=== PATIENT | female | born 1995 | race Two or more races ===

== ENCOUNTER 2024-11-09 15:04 | Emergency (ER) | payer MEDICAID, SELFPAY ==
--- NOTE | 2024-11-09 15:09 | XR_ITS ---
Examination: OB Transvaginal ultrasound of the pelvis, complete Technique: Transvaginal sonographic images pelvis performed using mann scale imaging Exam date and time: November 09, 2024 1543 hours INDICATIONS: Vaginal bleeding lower back pain pelvic pain beginning today. FINDINGS: Uterus 6.7 x 3.7 x 4.5 cm Left uterine fundal mass 8 x 6 x 7 mm Intrauterine gestational sac 0.6 cm corresponds to 5 weeks 2 days gestational age No pole, no cardiac activity Right ovary 5.3 x 3.5 x 4.1 cm, multiple cysts, the largest 3.6 cm, arterial flow to the ovary Left ovary 3.7 x 1.7 x 3.1 cm arterial flow multiple follicles IMPRESSION: Empty intrauterine gestational sac corresponding to 5 weeks 2 days gestational age, no pole, no cardiac activity Recommend short-term follow-up transvaginal pelvic sonography to document viability
[2024-11-09 15:38] VITALS: BP 130/84; PULSE 79; RESP 16; TEMP 37.1; O2SAT 100; BMI 24.7
[2024-11-09 16:47] LABS: Basophils % (Auto) 0 % (0-2.5); Eosinophils # (Auto) 0.2 Thou/mm3 (0.0-0.5); Eosinophils % (Auto) 2 % (0-10); Hematocrit 38.4 % (36.0-46.0); Hemoglobin 13.4 g/dL (12.0-16.0); Immature Granulocytes % (Auto) 1 % (0-0); Immature Granulocytes Auto 0.08 Thou/mm3 (0.00-0.00); Lymphocytes # (Auto) 2.2 Thou/mm3 (1.0-4.8); Lymphocytes % (Auto) 29 % (10-50); Mean Corpuscular HGB Conc 34.9 g/dl (31.0-37.0); Mean Corpuscular Hemoglobin 30.2 pg (25.0-35.0); Mean Corpuscular Volume 87 fL (80-100); Monocytes # (Auto) 0.6 Thou/mm3 (0.0-0.8); Monocytes % (Auto) 7 % (0-12); Neutrophils # (Auto) 4.7 Thou/mm3 (1.8-7.7); Neutrophils % (Auto) 61 % (37-80); Nucleated Red Blood Cell % 0 /100 WBC (0); Platelet Count 226 Thou/mm3 (140-440); RDW Standard Deviation 38.3 fL (36.4-46.3); Red Blood Count 4.44 Miln/mm3 (4.00-5.20); White Blood Count 7.7 Thou/mm3 (3.6-11.0)
[2024-11-09 17:14] LABS: Alanine Aminotransferase 23 U/L (10-49); Albumin, Serum 4.7 gm/dL (3.5-5.0); Albumin/Globulin Ratio 1.8 (1.2-2.2); Alkaline Phosphatase 58 U/L (46-116); Anion Gap 10 (7-16); Aspartate Amino Transferase 21 U/L (0-34); BUN/Creatinine Ratio 18 Ratio (12-20); Beta HCG,Quantitative 65 mIU/mL (<5.0); Bilirubin,Total 0.4 mg/dL (0.3-1.2); Blood Urea Nitrogen 11 mg/dL (9-23); Calcium 9.8 mg/dL (8.3-10.6); Calcium (Corrected) 9.8 mg/dL (8.5-10.1); Chloride 105 mMol/L (98-107); Creatinine (Component) 0.6 mg/dL (0.6-1.3); Estimated Creatinine Clearance 124.1 mL/min (>60); Globulin 2.6 gm/dL (2.3-3.5); Glucose 86 mg/dL (74-106); Osmolality,Calculated 274 (275-295); Potassium 3.8 mMol/L (3.4-5.1); Sodium 138 mMol/L (136-145); Total Protein 7.3 gm/dL (5.7-8.2); eGFR > 60 See Note
--- NOTE | 2024-11-09 17:22 | EDNOTE_ITS ---
ED OB Contraction Preg RMI/HPI General Chief complaint: Vaginal Bleeding Stated complaint: VAGINAL BLEEDING AND BACK PAIN AT 5 WKS Time Seen by Provider: 11/09/24 15:08 Arrival date/time: 11/09/24 15:04 29-year-old female presents to the emergency department today complaints of vaginal spotting reports being approximate 5 weeks Limitations: no limitations Related Data Previous Rx's ?Medication ?Instructions ?Recorded nitrofurantoin macrocrystal 100 mg 100 mg PO BID #14 caps 07/02/18 capsule (Macrodantin) ondansetron 4 mg disintegrating 4 mg PO Q8H #20 tabs 02/27/24 tablet pantoprazole 20 mg tablet,delayed 20 mg PO QDAY #30 tabs 02/27/24 release (Protonix) Allergies Allergy/AdvReac Type Severity Reaction Status Date / Time almond Allergy Mild Rash Verified 11/09/24 15:06 Review of Systems Review of Systems Systems Reviewed: All systems reviewed, normal except as documented Constitutional Constitutional: Reports system reviewed and no additional complaints, except as documented, Denies fever(s) and Denies headache(s) Eyes Eyes: Reports system reviewed and no additional complaints, except as documented and Denies blurry vision ENT Ears, Nose, Mouth, and Throat: Reports system reviewed and no additional complaints, except as documented, Denies headache(s), Denies nasal congestion and Denies nasal discharge Cardiovascular Cardiovascular: Reports system reviewed and no additional complaints, except as documented, Denies chest pain and Denies dyspnea Respiratory Respiratory: Reports system reviewed and no additional complaints, except as documented, Denies chest congestion, Denies cough and Denies dyspnea Gastrointestinal Gastrointestinal: Reports system reviewed and no additional complaints, except as documented and Denies abdominal pain Genitourinary Genitourinary: Reports system reviewed and no additional complaints, except as documented and Reports abnormal vaginal bleeding Integumentary/Breasts Skin/Breast: Reports system reviewed and no additional complaints, except as documented and Denies rash Neurologic Neurologic: Reports system reviewed and no additional complaints, except as documented, Reports as per HPI and Denies headache(s) Past Medical History Past Medical History NEUROLOGIC: Negative Neurological Disorders CARDIAC: Negative Cardiac Disorders ED Exam General Limitations: Present no limitations General appearance: Present alert and in no apparent distress Head Head exam: Present atraumatic, normocephalic and normal inspection Eye Eye exam: Present normal appearance, PERRL and EOMI; Absent conjunctival injection ENT ENT exam: Present normal exam, normal oropharynx and mucous membranes moist Neck Neck exam: Present normal inspection, full ROM and trachea midline Chest Chest inspection: Present normal inspection and symmetric chest wall rise Respiratory Respiratory exam: Present normal lung sounds bilaterally; Absent respiratory distress Cardiovascular Cardiovascular exam: Present regular rate, normal rhythm and normal heart sounds Abdominal Exam Abdominal exam: Present soft and normal bowel sounds; Absent distention, tenderness, guarding, rebound or rigidity Extremities Exam Extremities exam: Present normal inspection and full ROM Back Exam Back exam: Present normal inspection and full ROM Neurological Exam Neurological exam: Present alert, oriented X3 and CN II-XII intact Psychiatric Psychiatric exam: Present normal affect and normal mood Skin Skin exam: Present warm, dry, intact and normal color Course Quality Measures none Orders Category Date Time Status US OB transvaginal Stat Exams 11/09/24 15:09 Completed ABO/RH Type Stat Lab 11/09/24 16:18 Received Beta HCG,Quantitative Stat Lab 11/09/24 16:18 Completed CBC Stat Lab 11/09/24 16:18 Completed Comprehensive Metabolic Panel Stat Lab 11/09/24 16:18 Completed Vital Signs Vital signs: Vital Signs Temperature 98.8 F 11/09/24 15:38 Pulse Rate 79 11/09/24 15:38 Respiratory Rate 16 11/09/24 15:38 Blood Pressure 130/84 11/09/24 15:38 Pulse Oximetry (%) 100 11/09/24 15:38 Oxygen Delivery Method Room Air 11/09/24 15:38 O2 saturation 100% room air with normal limits Vaginal Bleeding MDM Narrative MDM Narrative: 29-year-old female presents to the emergency department today complaints of vaginal spotting reports being approximate 5 weeks Patient reports this is her first and went underwent in vitro fertilization Lab work as well as ultrasound obtained hCG is only 65 ultrasound shows no heartbeat at this time I suspect patient is having a miscarriage Patient struck to follow-up with [employer] as soon as possible for any worsening symptoms return immediately Patient data External records reviewed:: [facility] previous records Clinical information provided by:: patient Social determinants that could affect healthcare access:: none Patient has the following chronic illnesses:: None How is presenting disease/condition affected by chronic disease/condition?: no chronic disease Evaluation data The following diagnostics were reviewed and interpreted by me:: lab results and radiology exam(s) Lab and/or radiology exams considered but not ordered:: Labs and radiology obtained Interpretation Summary: Reviewed by me Medications / Prescriptions Medications or Prescriptions considered but not ordered:: Given Medication administrations:: Given Consultations Consultation(s) initiated? (list below): No Diagnosis Vaginal Bleeding Differential Diagnosis: missed and threatened Most likely diagnosis given after review of the tests above:: Threatened Admission Indicated Admission indicated?: not indicated Admission Request Was there a request for admission?: No Disposition Plan Disposition Plan: Discharge Discharge Attestation Discharge Attestation: The patient and all family members were given an opportunity to ask questions and understood the discharge instructions. Discharge instructions specifically effects, indications for sooner follow up or return to the emergency department, and the expected course of current diagnosis. Patient condition: Stable Discharge Plan Plan Patient Disposition: HOME (Self Care) Disposition Comment: Stable Prescriptions/Referrals Prescriptions/Med Rec: No Action nitrofurantoin macrocrystal [Macrodantin] 100 mg capsule 100 mg PO BID Qty: 14 0RF Rx Instructions: must administer with a meal/food ondansetron 4 mg tablet,disintegrating 4 mg PO Q8H Qty: 20 0RF pantoprazole [Protonix] 20 mg tablet,delayed release (DR/EC) 20 mg PO QDAY Qty: 30 0RF Referrals: Erick ([facility])Mayte FNP [Primary Care Provider] - 11/10/24 Problem List Clinical Impression: Threatened Patient/Caregiver Discharge Instructions Education Materials: ED Possible Miscarriage ... Additional Instructions: Please have repeat lab work and ultrasound in 1 week for worsening symptoms or concerns return to the immediately Your hCG level is 65 Print Language: Greenlandic Stand Alone Forms: Angelia Award Info., Work/School Release, Patient Portal Info Letter MARYAM/MANE Supervising Physician MARYAM/MANE Supervising Physician: Dr. Cobos
== END 2024-11-09 18:17 | disposition home or self-care (01) ==
PROVIDERS: Nurse Practitioner Primary Care; Emergency Provider Emergency Medicine; PCP Nurse Practitioner Primary Care
DX: O20.0 Threatened abortion (principal); Z3A.01 Less than 8 weeks gestation of pregnancy
CPT/HCPCS: 36415; 76817; 80053; 84702; 85025; 86900; 86901; 99284

== ENCOUNTER → 2025-05-07 | Outpatient (BNVA) | payer MEDICAID, SELFPAY | END | disposition home or self-care (01) | PROVIDERS: PCP Nurse Practitioner Primary Care; Referring Provider Nurse Practitioner Primary Care; Visit Provider Nurse Practitioner Primary Care | DX: R10.13 Epigastric pain (principal) | CPT/HCPCS: 99203; 99205 ==

== ENCOUNTER → 2025-05-18 | Outpatient (BNVA) | payer MEDICAID, SELFPAY | END | disposition home or self-care (01) | PROVIDERS: PCP Nurse Practitioner Primary Care; Referring Provider Nurse Practitioner Primary Care; Visit Provider Nurse Practitioner Primary Care | DX: Z00.00 Encounter for general adult medical examination without abnormal findings (principal); Z13.220 Encounter for screening for lipoid disorders; Z01.812 Encounter for preprocedural laboratory examination; Z13.1 Encounter for screening for diabetes mellitus; R10.13 Epigastric pain; G89.29 Other chronic pain | CPT/HCPCS: 99173; 99395; G0439 ==

== ENCOUNTER → 2025-06-29 | Outpatient (BNVA) | payer MEDICAID, SELFPAY | END | disposition home or self-care (01) | PROVIDERS: PCP Nurse Practitioner Primary Care; Referring Provider Nurse Practitioner Primary Care; Visit Provider Nurse Practitioner Primary Care | DX: Z71.2 Person consulting for explanation of examination or test findings (principal); E55.9 Vitamin D deficiency, unspecified | CPT/HCPCS: 99213 ==

== ENCOUNTER → 2025-07-10 | Outpatient (BNVA) | payer MEDICAID, SELFPAY | END | disposition home or self-care (01) | PROVIDERS: PCP Nurse Practitioner Primary Care; Referring Provider Nurse Practitioner Primary Care; Visit Provider Nurse Practitioner Primary Care | DX: K29.50 Unspecified chronic gastritis without bleeding (principal); K20.90 Esophagitis, unspecified without bleeding; K29.80 Duodenitis without bleeding | CPT/HCPCS: 99213 ==

== ENCOUNTER 2025-07-16 09:01 | Outpatient (RCR) | payer MEDICAID, SELFPAY ==
--- NOTE | 2025-07-16 10:00 | XR_ITS ---
Examination: SHAUN, hepatobiliary radioisotope scan Gallbladder ejection fraction study. Date and time of exam: July 16, 2025 1229 hours INDICATIONS: Intermittent epigastric pain beginning December 2024 with nausea burping and fullness, clinical diagnosis unspecified chronic gastritis without bleeding Technique: 5.8 mCi of 99M Hepatolite administered. Serial imaging then obtained from immediate through 60 minutes. 1.2 mcg selective catheter Kinevac administered for gallbladder ejection fraction study. Findings: Radioisotope activity within the liver is reasonably homogenous. Gallbladder, common bile duct small bowel activity noted Impression: Gallbladder activity Abnormal gallbladder ejection fraction, 4%, normal greater than 35%
[2025-07-16 10:04] LABS: HCG Qualitative,Urine Negative
== END 2025-07-21 23:59 | disposition home or self-care (01) ==
LOC: SNUC 09:01
PROVIDERS: PCP Nurse Practitioner Primary Care; Referring Provider Nurse Practitioner Primary Care; Visit Provider Nurse Practitioner Primary Care
DX: R93.2 Abnormal findings on diagnostic imaging of liver and biliary tract (principal); Z32.00 Encounter for pregnancy test, result unknown
CPT/HCPCS: 78227; 81025; A9537; J2805

== ENCOUNTER → 2025-07-27 | Outpatient (BNVA) | payer MEDICAID, SELFPAY | END | disposition home or self-care (01) | PROVIDERS: PCP Nurse Practitioner Primary Care; Referring Provider Nurse Practitioner Primary Care; Visit Provider Nurse Practitioner Primary Care | DX: R93.2 Abnormal findings on diagnostic imaging of liver and biliary tract (principal) | CPT/HCPCS: 99214 ==

== ENCOUNTER 2025-08-20 19:56 | Emergency (ER) | payer MEDICAID, SELFPAY ==
[2025-08-20 19:57] VITALS: BMI 23.2
[2025-08-20 20:36] VITALS: BP 113/72; PULSE 76; RESP 16; TEMP 36.9; O2SAT 100
--- NOTE | 2025-08-20 20:41 | XR_ITS ---
Examination: Abdomen sonogram, Limited Date and time of exam: August 20, 2025, 2057 hours INDICATIONS: Right upper abdominal pain months Technique: Real-time mann scale transabdominal sonographic images of the upper abdomen obtained. Findings: Contracted gallbladder no definite stones Gallbladder wall 0.5 cm Common bile duct 0.3 cm Pancreatic head 2.4 cm Liver 12.7 cm no liver lesions Normal hepatopetal portal venous flow Patent IVC IMPRESSION: Repeat gallbladder portion of the study with fasting
--- NOTE | 2025-08-20 20:43 | PD.EDABDPN ---
ED Abdominal Pain RME/HPI General Chief Complaint: Abdominal Pain Stated complaint: GALLBLADDER PAIN Time seen by provider: 08/20/25 20:29 Arrival date/time: 08/20/25 19:56 30-year-old female with a history of gallbladder ejection fraction of 4% reports with complaints of worsening right upper quadrant pain over the last several days. Patient states that she no was referred for cholecystectomy but she has not yet been scheduled. No fever chills shortness of breath chest pain nausea vomiting diarrhea constipation. Patient has not taken any medications for symptoms Limitations: no limitations Related Data Previous Rx's ?Medication ?Instructions ?Recorded cetirizine 10 mg tablet (Zyrtec) 10 mg PO QDAY PRN allergy symptoms 07/10/25 #30 tabs fluticasone propionate 50 2 spray intranasal QDAY #16 APPLS 07/10/25 mcg/actuation nasal spray,suspension (Flonase Allergy Relief) lansoprazole 30 mg capsule,delayed 30 mg PO QDAY 16 weeks #112 caps 07/10/25 release sucralfate 100 mg/mL oral 10 ml PO QDAY #420 mL 07/10/25 suspension (Carafate) ondansetron HCl 4 mg tablet 4 mg PO BID PRN nausea and 08/20/25 vomiting #20 tabs tramadol 50 mg tablet 50 mg PO TID PRN pain #15 tabs 08/20/25 Allergies Allergy/AdvReac Type Severity Reaction Status Date / Time almond Allergy Mild Rash Verified 08/20/25 19:59 Review of Systems Constitutional Constitutional: Denies chills, Denies fever(s) and Denies headache(s) ENT Ears, Nose, Mouth, and Throat: Denies headache(s) and Denies vertigo Cardiovascular Cardiovascular: Denies chest pain and Denies dyspnea Respiratory Respiratory: Reports cough and Denies dyspnea Gastrointestinal Gastrointestinal: Reports abdominal pain, Denies loose stools, Denies melena, Denies nausea and Denies vomiting Genitourinary Genitourinary: Denies abnormal vaginal bleeding, Denies difficulty voiding and Denies dysuria Musculoskeletal Musculoskeletal: Reports back pain and Denies deformity Neurologic Neurologic: Denies headache(s) and Denies vertigo Past Medical History Past Medical History NEUROLOGIC: Negative Neurological Disorders CARDIAC: Negative Cardiac Disorders or Congestive Heart Failure RESPIRATORY: Negative Chronic Obstructive Pulmonary Disease (COPD) GENITOURINARY: Negative Renal Disease ENDOCRINE: Negative Diabetes Mellitus Type 1 or Diabetes Mellitus Type 2 Social History SMOKING STATUS: Never smoker ED Exam General Limitations: Present no limitations General appearance: Present alert and in no apparent distress Chest Chest inspection: Present normal inspection and symmetric chest wall rise Respiratory Respiratory exam: Present normal lung sounds bilaterally Cardiovascular Cardiovascular exam: Present regular rate, normal rhythm and normal heart sounds Abdominal Exam Abdominal exam: Present soft, tenderness and normal bowel sounds; Absent distention, guarding, rebound, rigidity, mass or bruit Abdominal tenderness: Present RUQ Extremities Exam Extremities exam: Present normal inspection and full ROM Back Exam Back exam: Present normal inspection and full ROM Neurological Exam Neurological exam: Present alert, oriented X3 and CN II-XII intact Psychiatric Psychiatric exam: Present normal affect and normal mood Skin Skin exam: Present warm, dry, intact and normal color Course Course Course Narrative: 30-year-old female with a history of an ejection fraction of less than 4% of the gallbladder reports with complaints of left upper quadrant abdominal pain. Patient's ultrasound today showed no stones no wall thickness. CBC and CMP and U/A unremarkable hCG is negative lipase is also negative urinalysis is negative for evidence of infection. Patient was treated with some pain medications antiemetics and referred to her primary care provider for further evaluation and treatment as she is stable nontoxic-appearing with stable vital signs Quality Measures none Orders Category Date Time Status US abdomen limited Stat Exams 08/20/25 20:41 Completed CBC Stat Lab 08/20/25 20:52 Completed CMP [Comprehensive Metabolic Panel] Stat Lab 08/20/25 20:52 Completed HCG,Qualitative Serum Stat Lab 08/20/25 20:52 Completed Lipase Stat Lab 08/20/25 20:52 Completed UA [Urinalysis] Stat Lab 08/20/25 20:48 Completed Ketorolac Inj [Toradol Inj] Med 08/20/25 21:51 Discontinued 30 mg IM X1 ONE Ondansetron Odt [Zofran Odt] Med 08/20/25 23:29 Discontinued 4 mg PO X1 ONE Promethazine Inj [Phenergan Inj] Med 08/20/25 21:51 Discontinued 12.5 mg IM X1 ONE Vital Signs Vital signs: Vital Signs Temperature 98.4 F 08/20/25 20:36 Pulse Rate 76 08/20/25 20:36 Respiratory Rate 16 08/20/25 20:36 Blood Pressure 113/72 08/20/25 20:36 Pulse Oximetry (%) 100 08/20/25 20:36 Oxygen Delivery Method Room Air 08/20/25 20:36 Abdominal Pain MDM Patient data External records reviewed:: None Clinical information provided by:: patient Social determinants that could affect healthcare access:: none Patient has the following chronic illnesses:: none How is presenting disease/condition affected by chronic disease/condition?: no chronic disease Evaluation data The following diagnostics were reviewed and interpreted by me:: lab results and radiology exam(s) Lab and/or radiology exams considered but not ordered:: none Interpretation Summary: negative lab results Medications / Prescriptions Medications or Prescriptions considered but not ordered:: none Medication administrations:: Medication Administration History Discontinued Medications Ketorolac Tromethamine (Ketorolac Inj 30 Mg/Ml Vial) 30 mg IM X1 ONE Stop: 08/20/25 21:52 Last Admin: 08/20/25 23:35 Dose: 30 mg Documented By: GARETH Ondansetron HCl (Ondansetron Odt 4 Mg Tabrap) 4 mg PO X1 ONE; Protocol Stop: 08/20/25 23:30 Promethazine HCl (Promethazine Inj 25 Mg/Ml Vial) 12.5 mg IM X1 ONE; Protocol Stop: 08/20/25 21:52 Last Admin: 08/20/25 23:30 Dose: Not Given Documented By: GARETH Non-Admin Reason: Discontinued as above Consultations Consultation(s) initiated? (list below): No Diagnosis Differential diagnosis abdominal pain: abdominal pain, constipation and gastroenteritis Most likely diagnosis given after review of the tests above:: abdominal pain Admission Indicated Admission indicated?: not indicated Admission Request Was there a request for admission?: No Disposition Plan Disposition Plan: Discharge Discharge Attestation Discharge Attestation: The patient and all family members were given an opportunity to ask questions and understood the discharge instructions. Discharge instructions specifically effects, indications for sooner follow up or return to the emergency department, and the expected course of current diagnosis. Patient condition: Stable Discharge Plan Plan Patient Disposition: HOME (Self Care) Prescriptions/Referrals Prescriptions/Med Rec: New tramadol 50 mg tablet 50 mg PO TID PRN (Reason: pain) Qty: 15 0RF ondansetron HCl 4 mg tablet 4 mg PO BID PRN (Reason: nausea and vomiting) Qty: 20 0RF No Action cetirizine [Zyrtec] 10 mg tablet 10 mg PO QDAY PRN (Reason: allergy symptoms) Qty: 30 2RF sucralfate [Carafate] 100 mg/mL suspension 10 ml PO QDAY Qty: 420 0RF lansoprazole 30 mg capsule,delayed release(DR/EC) 30 mg PO QDAY 112 Days Qty: 112 0RF fluticasone propionate [Flonase Allergy Relief] 50 mcg/actuation spray,suspension 2 spray intranasal QDAY Qty: 16 0RF Rx Instructions: administer into each nostril Referrals: Erick ([facility]),MANE Deglado [Primary Care Provider, Family Practice] - In 1 week Problem List Clinical Impression: Abdominal pain, chronic, epigastric Patient/Caregiver Discharge Instructions Discharge Activity: activity as tolerated Education Materials: ED Epigastric Pain (Uncertain Cause) Additional Instructions: Take medication as needed and directed follow-up with your primary care provider for a sooner schedule for surgery to have your gallbladder removed. Return to the emergency department if symptoms should worsen Print Language: Burmese Stand Alone Forms: Angelia Award Info., Patient Portal Info Letter
[2025-08-20 21:01] LABS: Collection Type, Urine Clean Catch
[2025-08-20 21:15] LABS: Basophils # (Auto) 0.0 Thou/mm3 (0.0-0.2); Basophils % (Auto) 1 % (0-2.5); Eosinophils # (Auto) 0.2 Thou/mm3 (0.0-0.5); Eosinophils % (Auto) 3 % (0-10); Hematocrit 38.9 % (36.0-46.0); Hemoglobin 13.0 g/dL (12.0-16.0); Immature Granulocytes Auto 0.03 Thou/mm3 (0.00-0.00); Lymphocytes # (Auto) 2.4 Thou/mm3 (1.0-4.8); Lymphocytes % (Auto) 30 % (10-50); Mean Corpuscular HGB Conc 33.4 g/dl (31.0-37.0); Mean Corpuscular Hemoglobin 29.3 pg (25.0-35.0); Mean Corpuscular Volume 88 fL (80-100); Monocytes # (Auto) 0.7 Thou/mm3 (0.0-0.8); Monocytes % (Auto) 9 % (0-12); Neutrophils # (Auto) 4.5 Thou/mm3 (1.8-7.7); Neutrophils % (Auto) 57 % (37-80); Nucleated Red Blood Cell # 0.00 Thou/mm3 (0.00-0.00); Nucleated Red Blood Cell % 0 /100 WBC (0); Platelet Count 201 Thou/mm3 (140-440); RDW Standard Deviation 39.5 fL (36.4-46.3); Red Blood Count 4.43 Miln/mm3 (4.00-5.20); White Blood Count 7.9 Thou/mm3 (3.6-11.0)
[2025-08-20 21:19] LABS: Bilirubin,Urine Negative (Negative); Blood,Urine Negative (Negative); Clarity,Urine Clear (Clear/Hazy); Color,Urine Colorless (Lt Yel-Yel); Glucose, Urine Negative (Negative); Ketones,Urine Negative (Negative); Leukocyte Esterase,Urine Negative (Negative); Nitrite,Urine Negative (Negative); PH,Urine 7.0 (5.0-7.0); Protein,Urine Negative (Neg - Trace); RBC,Urine < 1 /hpf (0-3); Specific Gravity,Urine 1.006 (1.001-1.035); Squamous Epithelial Cell,Urine 1 /hpf (0-5); Urobilinogen,Urine Negative mg/dL (0.0-1.0); WBC,Urine < 1 /hpf (0-5)
[2025-08-20 21:32] LABS: HCG,Qualitative Serum Negative
[2025-08-20 21:33] LABS: Alanine Aminotransferase 8 U/L (10-49); Albumin, Serum 4.3 gm/dL (3.5-5.0); Albumin/Globulin Ratio 2.0 (1.2-2.2); Alkaline Phosphatase 41 U/L (46-116); Anion Gap 9 (7-16); Aspartate Amino Transferase 17 U/L (0-34); BUN/Creatinine Ratio 13 Ratio (12-20); Bilirubin,Total 0.4 mg/dL (0.3-1.2); Blood Urea Nitrogen 8 mg/dL (9-23); Calcium 9.1 mg/dL (8.3-10.6); Calcium (Corrected) 9.1 mg/dL (8.5-10.1); Carbon Dioxide 22.1 mMol/L (20.0-31.0); Chloride 109 mMol/L (98-107); Creatinine (Component) 0.6 mg/dL (0.6-1.3); Estimated Creatinine Clearance 113.4 mL/min (>60); Globulin 2.1 gm/dL (2.3-3.5); Glucose 90 mg/dL (74-106); Lipase 48 U/L (12-53); Osmolality,Calculated 277 (275-295); Potassium 4.0 mMol/L (3.4-5.1); Sodium 140 mMol/L (136-145); Total Protein 6.4 gm/dL (5.7-8.2); eGFR > 60 See Note
[2025-08-20] MEDS: KETOROLAC INJ 30 MG/ML VIAL IM (23:35)
[2025-08-20] MEDS: ONDANSETRON ODT 4 MG TABRAP PO (23:46)
[2025-08-21 00:08] VITALS: BP 103/70; PULSE 74; RESP 16; TEMP 36.7; O2SAT 98
== END 2025-08-21 00:10 | disposition home or self-care (01) ==
PROVIDERS: Emergency Provider Physician Assistant; PCP Nurse Practitioner Primary Care
DX: R10.9 Unspecified abdominal pain (principal)
CPT/HCPCS: 36415; 76705; 80053; 81001; 83690; 84703; 85025; 96372; 99283; J1885; Q0162

== ENCOUNTER 2025-08-23 07:45 | Day surgery (SDC) | payer MEDICAID, SELFPAY ==
[2025-08-22 14:29] VITALS: BMI 23.2
[2025-08-23] VITALS (9 sets, daily range): BP systolic 112–138; BP diastolic 58–79; PULSE 66–96; RESP 12–24; TEMP 36.4–36.9; O2SAT 95–100; BMI 23.8
--- NOTE | 2025-08-23 10:22 | ESOP_ITS ---
Date of Procedure 08/23/25 Pre Op Diagnosis Biliary dyskinesia Post Op Diagnosis Biliary dyskinesia Chronic cholecystitis Procedure Laparoscopic cholecystectomy Findings Moderately distended gallbladder with chronic cholecystitis Procedure Description Patient was brought into the operating room in supine position. After administration of general endotracheal anesthesia abdomen was prepped and draped in standard surgical manner. A Veress needle was inserted through the umbilicus and pneumoperitoneum was obtained up to 15 mmHg. The Veress needle was then removed, a 5 mm infraumbilical incision was made and the 5mm trocar was inserted. Laparoscopic camera was placed. Under direct visualization a laparoscopic camera a 10 mm trocar was placed in subxiphoid and two 5 mm trocars placed in right upper quadrant. The gallbladder was identified and was noted to be moderately distended. It was retracted cephalad and laterally. Dissection started near the infundibulum of gallbladder where cystic duct and gallbladder junction clearly identified. The cystic duct was circumferentially dissected off the peritoneum and surrounding inflammatory tissue. The critical view of safety was clearly demonstrated. Cystic duct was then divided between 2 endoclips proximally and one distally. The cystic artery was similarly dissected and divided. The gallbladder was then from the liver bed using electrocautery. The gallbladder was then placed inside an Endo Catch and removed from the abdomen utilizing subxiphoid trocar site. The area was copiously and thoroughly washed and irrigated, all the fluid was suctioned and the suction fluid returned clear. Hemostasis achieved using electrocautery. Endoclips noted be in place and intact without any bleeding or any leakage. Hemostasis was adequate and satisfactory. The subxiphoid trocar sites fascial defect was closed with 0 Vicryl. Instruments and trocars removed, pneu moperitoneum was evacuated and the incisions closed with 4-0 Monocryl in subcuticular fashion. Instrument needle and sponge counts were all reported to be correct X2. Patient tolerated the procedure well, was extubated, breathing spontaneously and without difficulty and was transferred to postanesthesia care in stable condition. Anesthesia GETA and local Pathology / specimen Other (Gallbladder and contents) Estimated Blood Loss 10 Condition Stable Disposition PACU Surgeon Tello Muir MD Surgical Staff Operation Date: 08/23/25 10:00 Case Staff Anesthesiologist: Jackson Cline RNvp ad sales west: Keyla Charles
--- NOTE | 2025-08-23 10:22 | SUR.PHASEI ---
pt arrived to PACU via gurney drowsy but arouses to voice, breathing unlabored, dressing to abdomen clean, dry, and intact, report from Kavya LIMA and Dr Cline
[2025-08-23] MEDS: fentaNYL CIT INJ 50 mCg/ML AMP 2ML IVP (10:40)
[2025-08-23] MEDS: KETOROLAC INJ 30 MG/ML VIAL IVP (10:46)
--- NOTE | 2025-08-23 10:55 | SUR.PHASEI ---
sat patient up in bed, encouraged pt to deep breathe and rotate shoulders to alleviate gas pain, pt reports persistent 10/10 pain, will medicate per orders
--- NOTE | 2025-08-23 10:55 | SUR.PHASEI ---
pt tolerating ice chips without difficulty swallowing or n/v
[2025-08-23] MEDS: HYDROmorphone INJ 2 MG/ML VIAL 0.5 MG IVP (10:57)
--- NOTE | 2025-08-23 11:45 | SUR.PHASEII ---
pt awake, alert, able to follow commands, breathing unlabored, dressing to abdomen clean, dry, and intact, discharge instructions given with spouse present using telephone ice grinder Salvatore ID#[id number] questions answered, pt able to ambulate to wheelchair with all belongings and copies of discharge paperwork
== END 2025-08-23 11:45 | disposition home or self-care (01) ==
PROVIDERS: PCP Nurse Practitioner Primary Care; Referring Provider Surgery; Visit Provider Surgery
PROC: 0FT44ZZ Resection of Gallbladder, Percutaneous Endoscopic Approach (ICD-10-PCS; CPT 47562; principal; 2025-08-23 09:45)
DX: K81.1 Chronic cholecystitis (principal); K82.8 Other specified diseases of gallbladder
CPT/HCPCS: 47562; A4217; A4649; J0131; J0694; J1100; J1171; J1885; J2371; J2405; J2704; J3010; J3490

== ENCOUNTER → 2025-09-12 | Outpatient (BNVA) | payer MEDICAID, SELFPAY | END | disposition home or self-care (01) | PROVIDERS: PCP Nurse Practitioner Primary Care; Referring Provider Nurse Practitioner Primary Care; Visit Provider Nurse Practitioner Primary Care | DX: J30.9 Allergic rhinitis, unspecified (principal); Z23 Encounter for immunization; Z90.49 Acquired absence of other specified parts of digestive tract | CPT/HCPCS: 90471; 90686; 96372; 99213; J3301; G0008 ==

== ENCOUNTER 2025-09-28 11:37 | Emergency (ER) | payer MEDICAID, SELFPAY ==
--- NOTE | 2025-09-28 11:58 | XR_ITS ---
EXAMINATION: PA chest single view TECHNIQUE: Upright PA chest single view Date and time: September 20, 2025, 12:17 p.m. INDICATIONS: Coughing fever beginning 1 week ago. FINDINGS: Normal heart size Lungs are clear. Osseous rectors are intact IMPRESSION: No active disease
--- NOTE | 2025-09-28 12:01 | EDNOTE_ITS ---
Upper Respiratory Inf. RME/HPI General Chief Complaint: Flu Like Symptoms Stated Complaint: FEVER, STOMACH AND BONES HURT Time Seen by Provider: 09/28/25 11:59 Source: patient Arrival date/time: 09/28/25 11:37 30-year-old female with no known medical history presents to the emergency room with a chief complaint of bodyaches, fever, shortness of breath x 1 week Mode of arrival: ambulatory Limitations: no limitations Related Data Previous Rx's ?Medication ?Instructions ?Recorded lansoprazole 30 mg capsule,delayed 30 mg PO QDAY 16 we eks #112 caps 07/10/25 release docusate sodium 100 mg capsule 100 mg PO BID #20 caps 08/23/25 (Colace) hydrocodone 5 mg-acetaminophen 325 1 tab PO Q6H PRN pa in (scale score 08/23/25 mg tablet 7-10) #10 tabs ibuprofen 600 mg tablet 600 mg PO Q8H PRN pain (scal e 08/23/25 score 4-6) #15 tabs cetirizine 10 mg tablet (Zyrtec) 10 mg PO QDAY PRN all ergy symptoms 09/12/25 #30 tabs Allergies Allergy/AdvReac Type Severity Reaction Status Date / Time walnut Allergy Intermediate Hives Verified 09/28/25 11:39 Review of Systems Review of Systems Systems Reviewed: All systems reviewed, normal except as documented Constitutional Constitutional: Reports system reviewed and no additional complaints, except as documented, Denies fatigue, Denies fever(s), Denies headache(s) and Denies weakness Eyes Eyes: Reports system reviewed and no additional complaints, except as documented, Denies blurry vision and Denies change in vision ENT Ears, Nose, Mouth, and Throat: Reports system reviewed and no additional complaints, except as documented, Denies otalgia, Denies headache(s), Denies nasal congestion, Denies throat swelling and Denies vertigo Cardiovascular Cardiovascular: Reports system reviewed and no additional complaints, except as documented, Denies chest pain, Reports dyspnea and Denies dyspnea on exertion Respiratory Respiratory: Reports system reviewed and no additional complaints, except as documented, Denies chest congestion, Reports cough, Reports dyspnea, Denies dyspnea on exertion and Denies wheezing Gastrointestinal Gastrointestinal: Reports system reviewed and no additional complaints, except as documented, Denies abdominal pain, Denies cramping, Denies nausea and Denies vomiting Genitourinary Genitourinary: Reports system reviewed and no additional complaints, except as documented Musculoskeletal Musculoskeletal: Reports system reviewed and no additional complaints, except as documented and Denies back pain Integumentary/Breasts Skin/Breast: Reports system reviewed and no additional complaints, except as documented and Denies wounds Neurologic Neurologic: Reports system reviewed and no additional complaints, except as documented, Denies confusion, Denies headache(s), Denies lack of coordination, Denies vertigo and Denies weakness Psychiatric Psychiatric: Reports system reviewed and no additional complaints, except as documented, Denies anxiety, Denies confusion, Denies depression, Denies paranoia, Denies suicidal ideation and Denies tactile hallucinations Endocrine Endocrine: Reports system reviewed and no additional complaints, except as documented and Denies fatigue Hematologic/Lymphatic Hematologic/Lymphatic: Reports system reviewed and no additional complaints, except as documented and Denies lymphadenopathy Allergic/Immunologic Allergic/Immunologic: Reports system reviewed and no additional complaints, except as documented, Denies throat swelling, Denies urticaria and Denies wheezing Past Medical History Past Medical History NEUROLOGIC: Negative Neurological Disorders or Seizures CARDIAC: Negative Cardiac Disorders or Congestive Heart Failure RESPIRATORY: Negative Chronic Obstructive Pulmonary Disease (COPD) GASTROINTESTINAL: Positive Gastrointestinal Disorders, Gall Bladder Disease and Gastroesophageal Reflux Disease (gastritis); Negative Hepatitis GENITOURINARY: Negative Genitourinary Disorders or Renal Disease REPRODUCTIVE: Negative Endometriosis, Pelvic Inflammatory Disease, Previous Pregnancies or Uterine Prolapse MUSCULOSKELETAL: Negative Musculoskeletal Disorders ENDOCRINE: Negative Endocrine Disorders, Diabetes Mellitus Type 1 or Diabetes Mellitus Type 2 HEMATOLOGIC: Negative Blood Disorders OTHER HISTORY: Negative Hospitalization, Autoimmune Disease, Shingles, Blood Transfusions, Blood Transfusion Reaction, Anesthesia Reactions, Clostridium Difficile or Cancer Family History FAMILY HISTORY: Positive Family Cardiac Disorders and Family Surgery; Negative Family Psychiatric Problems, Family Respiratory Disorders, Family Gastrointestinal Problems, Family Cancer or Family Anesthesia Reaction Social History SMOKING STATUS: Never smoker ED Exam General Limitations: Present no limitations General appearance: Present alert and in no apparent distress Head Head exam: Present atraumatic Eye Eye exam: Present normal appearance, PERRL and EOMI ENT ENT exam: Present normal exam, normal oropharynx and mucous membranes moist Neck Neck exam: Present normal inspection, full ROM and trachea midline Chest Chest inspection: Present normal inspection and symmetric chest wall rise Respiratory Respiratory exam: Present normal lung sounds bilaterally; Absent respiratory distress, wheezes, stridor, accessory muscle use or prolonged expiratory phase Cardiovascular Cardiovascular exam: Present regular rate, normal rhythm, normal heart sounds, +S1 and +S2; Absent tachycardia Abdominal Exam Abdominal exam: Present soft and normal bowel sounds Extremities Exam Extremities exam: Present normal inspection and full ROM Back Exam Back exam: Present normal inspection and full ROM Neurological Exam Neurological exam: Present alert, oriented X3 and CN II-XII intact Psychiatric Psychiatric exam: Present normal affect and normal mood Skin Skin exam: Present warm, dry, intact and normal color Course Quality Measures none Orders Category Date Time Status XR chest 1V portable Stat Exams 09/28/25 11:58 Completed COVID-19 Antigen (In-House) Stat Lab 09/28/25 12:33 Completed Influenza A & B Rapid Panel Stat Lab 09/28/25 12:33 Completed Vital Signs Vital signs: Vital Signs Temperature 98.5 F 09/28/25 12:31 Pulse Rate 89 09/28/25 12:31 Respiratory Rate 18 09/28/25 12:31 Blood Pressure 124/70 09/28/25 12:31 Pulse Oximetry (%) 99 09/28/25 12:31 Oxygen Delivery Method Room Air 09/28/25 12:31 Upper Respiratory Infection MDM Narrative MDM Narrative:: 30-year-old female with no known medical history presents to the emergency room with a chief complaint of bodyaches, fever, shortness of breath x 1 week Patient is hemodynamically stable and in no apparent distress Physical examination shows body aches fever cough and shortness of breath x 1 week COVID-19 and influenza test were both negative Lung sounds are clear bilaterally there is no wheezing or any abnormal breath sounds Chest x-ray was negative for any pneumonic infiltrates Patient was discharged and educated to follow-up with primary care provider in the next 24 to 48 hours and return to the emergency room for any evidence of worsening signs or symptoms Patient data External records reviewed:: [facility] previous records Clinical information provided by:: patient Social determinants that could affect healthcare access:: none Patient has the following chronic illnesses:: No chronic illness How is presenting disease/condition affected by chronic disease/condition?: no chronic disease Evaluation data The following diagnostics were reviewed and interpreted by me:: lab results and radiology exam(s) Lab and/or radiology exams considered but not ordered:: Labs radiology exams considered and ordered Interpretation Summary: Chest [id number]: Normal heart size Lungs are clear. Osseous rectors are intact IMPRESSION: No active disease Medications / Prescriptions Medications or Prescriptions considered but not ordered:: No medication given Medication administrations:: No medication given Consultations Consultation(s) initiated? (list below): No Diagnosis Upper Respiratory Differential Diagnosis: upper respiratory infection, sinusitis, viral infection, bronchitis, influenza and other (Community-acquired pneumonia) Most likely diagnosis given after review of the tests above:: Upper respiratory infection Admission Indicated Admission indicated?: not indicated Admission Request Was there a request for admission?: No Disposition Plan Disposition Plan: Discharge Discharge Attestation Discharge Attestation: The patient and all family members were given an opportunity to ask questions and understood the discharge instructions. Discharge instructions specifically effects, indications for sooner follow up or return to the emergency department, and the expected course of current diagnosis. Patient condition: Stable Discharge Plan Plan Patient Disposition: HOME (Self Care) Discharge Disposition comment: Stable Prescriptions/Referrals Prescriptions/Med Rec: No Action lansoprazole 30 mg capsule,delayed release(DR/EC) 30 mg PO QDAY 112 Days Qty: 112 0RF cetirizine [Zyrtec] 10 mg tablet 10 mg PO QDAY PRN (Reason: allergy symptoms) Qty: 30 2RF docusate sodium [Colace] 100 mg capsule 100 mg PO BID Qty: 20 0RF hydrocodone-acetaminophen 5-325 mg tablet 1 tab PO Q6H MDD 4 PRN (Reason: pain (scale score 7-10)) Qty: 10 0RF ibuprofen 600 mg tablet 600 mg PO Q8H PRN (Reason: pain (scale score 4-6)) Qty: 15 0RF Problem List Clinical Impression: Upper respiratory infection Patient/Caregiver Discharge Instructions Education Materials: ED URI, Viral, No Abx (Adult) Additional Instructions: Por favor, consulte con yan m?dico de cabecera en las pr?ximas 24 a 48 horas. La radiograf?a de t?rax fue negativa para neumon?a. Si hay alguna evidencia de empeoramiento de los signos o s?ntomas, regrese a la hayder de emergencias inmediatamente. Print Language: [place] Stand Alone Forms: Angelia Award Info., Patient Portal Info Letter PA/DEAD MAIL CHECKER Supervising Physician PA/DEAD MAIL CHECKER Supervising Physician: Dr. Ash
[2025-09-28 12:31] VITALS: BP 124/70; PULSE 89; RESP 18; TEMP 36.9; O2SAT 99; BMI 21.9
[2025-09-28 13:18] LABS: COVID-19 Antigen (In-House) Negative (Negative)
[2025-09-28 13:27] LABS: Influenza A Ag Negative; Influenza B Ag Negative
== END 2025-09-28 15:00 | disposition home or self-care (01) ==
PROVIDERS: Nurse Practitioner Family; Emergency Provider Emergency Medicine
DX: J06.9 Acute upper respiratory infection, unspecified (principal)
CPT/HCPCS: 71045; 87502; 87811; 99282